=== PATIENT | female | born 1955 | race Caucasian/White ===

== ENCOUNTER 2023-11-18 16:26 | Inpatient (IN) | payer OTHER, MEDICAID ==
[~2023-11-18] VITALS: Ht 165.1 cm; Wt 125.7 kg
[2023-11-18 18:33] LABS: Basophils # (auto) 0 10 ^3/uL (0-0.2); Basophils % (auto) 0.3 % (0.0-2.0); Eosinophils # (auto) 0.1 10 ^3/uL (0-0.8); Eosinophils % (auto) 0.4 % (0.0-7.0); Hematocrit 46.9 % (36.0-46.0); Hemoglobin 15.5 g/dL (12.2-16.2); Lymphocytes % (auto) 7.2 % (10.0-50.0); Mean Corpuscular Hemoglobin 28.5 pg (28.0-32.0); Mean Corpuscular Volume 86.5 fL (80.0-100.0); Monocytes # (auto) 0.5 10 ^3/uL (0-1.3); Monocytes % (auto) 3.9 % (0.0-12.0); Neutrophils # (auto) 12.1 10 ^3/uL (1.6-8.6); Neutrophils % (auto) 88.2 % (37.0-80.0); Nucleated Red Blood Cells % 0.2 %; Platelet Count (auto) 235 10^3/uL (140-450); Red Blood Cells 5.42 10^6/uL (4.0-5.20); Red Cell Distribution Width 15.9 % (11.8-14.3); White Blood Cell 13.7 10^3/uL (4.4-10.8)
[2023-11-18 18:50] LABS: Alanine Aminotransferase 16 U/L (7-40); Albumin 4.2 g/dL (3.2-4.8); Alkaline Phosphatase 81 U/L (46-116); Anion Gap 10 (5-15); Aspartate Aminotransferase 23 U/L (13-40); BUN/Creatinine Ratio 13.6 (10.0-20.0); Blood Urea Nitrogen 17 mg/dL (9-23); Calcium 9.3 mg/dL (8.7-10.4); Carbon Dioxide 22 mmol/L (20-30); Chloride 107 mmol/L (98-107); Glucose 159 mg/dL (74-106); Sodium 139 mmol/L (136-145)
[2023-11-18 18:51] LABS: Bilirubin, Total 0.4 mg/dL (0.2-1.0); Total Protein 7.6 g/dL (5.7-8.2)
[2023-11-18 18:59] LABS: Lactic Acid w/Reflex 2.2 mmol/L (0.4-2.0)
[2023-11-18 19:01] LABS: Urine Bacteria None Seen /hpf (None Seen)
[2023-11-18 19:14] LABS: Urine Blood 1+ /uL (Negative); Urine Clarity Clear (Clear); Urine Color Yellow (Yellow); Urine Mucus FEW (None Seen); Urine Protein, UAD 1+ (Negative); Urine Specific Gravity 1.029 (1.001-1.035); Urine Urobilinogen Normal (Negative); Urine WBC 2 /hpf (0 - 5); Urine pH 5.5 (5.0-9.0)
[2023-11-18 19:18] LABS: Amphetamine Screen, Urine Neg (NEGATIVE); Barbiturate Scree,Urine Neg (NEGATIVE); Benzodiazephine Screen, Urine Neg (NEGATIVE)
[2023-11-18 19:19] LABS: Cannabinoid Screen, Urine Neg (NEGATIVE); Cocaine Screen, Urine Neg (NEGATIVE); Opiate Scree,Urine Neg (NEGATIVE); Phencyclidine Screen, Urine Neg (NEGATIVE)
[2023-11-18 19:32] LABS: Lipase 43 U/L (12-53)
[2023-11-19] VITALS (9 sets, daily range): BP systolic 117–132; BP diastolic 50–70; PULSE 60–100; RESP 14–20; TEMP 97.3–97.9; O2SAT 94–98
[2023-11-19] MEDS ORDERED: ONDANSETRON HCL 4 MG/2 ML VIAL IV PRN (00:15)
[2023-11-19] MEDS ORDERED: ACETAMINOPHEN 325 MG TAB PO PRN (00:15)
[2023-11-19] MEDS ORDERED: DEXTROSE (50%) 50ML SYRG IV PRN (00:15)
[2023-11-19] MEDS: TAMSULOSIN HYDROCHLORIDE 0.4 MG CAP PO ONE ×2 (01:19→09:45)
[2023-11-19] MEDS: cefTRIAXone 2GM/50ML D5W 50 ML IV ONE (01:19)
[2023-11-19] MEDS: ONDANSETRON HCL 4 MG/2 ML VIAL IV ONE (01:19)
[2023-11-19] MEDS: MORPHINE SULFATE INJ 2 MG/ml SYRG IV ONE (01:19)
[2023-11-19] MEDS: SODIUM CHLORIDE 0.9% 500 ML IV ONE (01:20)
[2023-11-19] MEDS: HYDROcodone-ACET 5/325MG TAB PO PRN (03:08)
[2023-11-19] MEDS: hydrALAZINE HCL 20 MG/ML VL IV PRN (03:08)
[2023-11-19] MEDS ORDERED: LISI10TA34 PO (04:36)
[2023-11-19] MEDS ORDERED: ASPI-543 PO (04:40)
[2023-11-19 05:00] LABS: Basophils # (auto) 0 10 ^3/uL (0-0.2); Basophils % (auto) 0.2 % (0.0-2.0); Eosinophils # (auto) 0 10 ^3/uL (0-0.8); Eosinophils % (auto) 0.1 % (0.0-7.0); Hematocrit 44.7 % (36.0-46.0); Hemoglobin 15.2 g/dL (12.2-16.2); Lymphocytes % (auto) 8.5 % (10.0-50.0); Mean Corpuscular Hemoglobin 28.9 pg (28.0-32.0); Mean Corpuscular Hgb Conc. 34.1 g/dL (32.0-36.0); Mean Corpuscular Volume 84.7 fL (80.0-100.0); Monocytes # (auto) 0.6 10 ^3/uL (0-1.3); Monocytes % (auto) 4.8 % (0.0-12.0); Neutrophils # (auto) 10.4 10 ^3/uL (1.6-8.6); Neutrophils % (auto) 86.4 % (37.0-80.0); Nucleated Red Blood Cells % 0.1 %; Platelet Count (auto) 228 10^3/uL (140-450); Red Blood Cells 5.28 10^6/uL (4.0-5.20); Red Cell Distribution Width 15.3 % (11.8-14.3); White Blood Cell 12.1 10^3/uL (4.4-10.8)
[2023-11-19 05:09] LABS: Anion Gap 7 (5-15); Carbon Dioxide 24 mmol/L (20-30); Chloride 107 mmol/L (98-107); Potassium 3.6 mmol/L (3.5-5.1); Sodium 138 mmol/L (136-145)
[2023-11-19 05:10] LABS: Calcium 8.8 mg/dL (8.7-10.4)
[2023-11-19 05:15] LABS: BUN/Creatinine Ratio 15.6 (10.0-20.0); Blood Urea Nitrogen 17 mg/dL (9-23); Glucose 137 mg/dL (74-106)
[2023-11-19] MEDS: InsuLIN REG 1unit/0.01ml Soln (100units/ml) SC SCH (05:40)
[2023-11-19] MEDS: ACCU-CHEK COMFORT CURVE STRIP VI SCH (05:43)
[2023-11-19] MEDS: SODIUM CHLORIDE 0.9% 1,000 ML IV SCH (09:45)
[2023-11-19] MEDS: MANNITOL FTV 25% 12.5 GM/50 ML 50 ML IV ONE ×2 (11:14→15:00)
[2023-11-19] MEDS: LISINOPRIL 5 MG TAB PO SCH (11:17)
[2023-11-19] MEDS: TAMSULOSIN HYDROCHLORIDE 0.4 MG CAP PO SCH (18:02)
[2023-11-19] MEDS ORDERED: TAMSULOSIN HYDROCHLORIDE 0.4 MG CAP PO SCH (22:00)
[2023-11-19] MEDS: cefTRIAXone 1GM/50ML D5W 50 ML IV SCH (22:05)
[2023-11-20 05:00] VITALS: BP 124/72; PULSE 79; RESP 18; TEMP 97.9; O2SAT 97
[2023-11-20 07:38] LABS: Basophils # (auto) 0 10 ^3/uL (0-0.2); Basophils % (auto) 0.3 % (0.0-2.0); Eosinophils # (auto) 0.2 10 ^3/uL (0-0.8); Eosinophils % (auto) 2.3 % (0.0-7.0); Hematocrit 42.9 % (36.0-46.0); Hemoglobin 14.6 g/dL (12.2-16.2); Lymphocytes # (auto) 1.7 10 ^3/uL (0.4-5.4); Lymphocytes % (auto) 23.9 % (10.0-50.0); Mean Corpuscular Volume 85.3 fL (80.0-100.0); Monocytes # (auto) 0.5 10 ^3/uL (0-1.3); Monocytes % (auto) 6.7 % (0.0-12.0); Neutrophils # (auto) 4.7 10 ^3/uL (1.6-8.6); Neutrophils % (auto) 66.8 % (37.0-80.0); Nucleated Red Blood Cells % 0.1 %; Platelet Count (auto) 223 10^3/uL (140-450); Red Blood Cells 5.03 10^6/uL (4.0-5.20); Red Cell Distribution Width 15.7 % (11.8-14.3); White Blood Cell 7.1 10^3/uL (4.4-10.8)
[2023-11-20 07:40] LABS: Chloride 106 mmol/L (98-107); Potassium 3.9 mmol/L (3.5-5.1); Sodium 138 mmol/L (136-145)
[2023-11-20 07:41] LABS: Anion Gap 5 (5-15); Carbon Dioxide 27 mmol/L (20-30)
[2023-11-20 07:42] LABS: Calcium 9.1 mg/dL (8.7-10.4)
[2023-11-20 07:47] LABS: BUN/Creatinine Ratio 14.1 (10.0-20.0); Blood Urea Nitrogen 12 mg/dL (9-23); Glucose 109 mg/dL (74-106)
[2023-11-20 09:00] VITALS: BP 139/59; PULSE 78; RESP 18; TEMP 98.3; O2SAT 96
[2023-11-20 11:18] VITALS: BP 139/59; PULSE 78; RESP 18; TEMP 98.3; O2SAT 96
[2023-11-20] MEDS ORDERED: TAMSULOSIN HYDROCHLORIDE 0.4 MG CAP PO SCH (18:00)
== END 2023-11-20 12:52 | disposition home or self-care (01) | DRG 693 ==
LOC: ER 16:26 → EDBD 16:26 → OVERFLOW 23:57 → CENTRAL 11-19 02:19
PROVIDERS: ADMIT Nurse Practitioner; ATTEND Internal Medicine
DX: N13.2 Hydronephrosis with renal and ureteral calculous obstruction (principal); R65.11 Systemic inflammatory response syndrome (SIRS) of non-infectious origin with acute organ dysfunction; E87.20 Acidosis, unspecified; Z68.42 Body mass index [BMI] 45.0-49.9, adult; N17.0 Acute kidney failure with tubular necrosis; E11.9 Type 2 diabetes mellitus without complications; I10 Essential (primary) hypertension; E66.01 Morbid (severe) obesity due to excess calories; E78.00 Pure hypercholesterolemia, unspecified; Z85.42 Personal history of malignant neoplasm of other parts of uterus; Z79.899 Other long term (current) drug therapy
CPT/HCPCS: 36415; 74176; 80048; 80053; 80307; 81001; 82010; 82962; 83036; 83605; 83690; 85025; G0378; J2405

== ENCOUNTER 2023-12-22 09:09 | Inpatient (IN) | payer OTHER, MEDICAID ==
[~2023-12-22] VITALS: Ht 166.4 cm; Wt 124.9 kg
[~2023-12-22 09:09] MED LIST: ASPI-543 PO; LISI10TA34 PO
[2023-12-22 09:28] VITALS: RESP 20; O2SAT 98
[2023-12-22] MEDS: SODIUM CHLORIDE 0.9% 1,000 ML IV ONE (09:31)
[2023-12-22] MEDS: ONDANSETRON HCL 4 MG/2 ML VIAL IV ONE (09:39)
[2023-12-22] MEDS: SODIUM CHLORIDE 0.9% 1,000 ML IVB ONE (09:39)
[2023-12-22] MEDS: KETOROLAC TROMETH 30 MG/ML 1ML VIAL IV ONE (09:39)
[2023-12-22 10:01] LABS: Basophils # (auto) 0.1 10 ^3/uL (0-0.2); Basophils % (auto) 0.6 % (0.0-2.0); Eosinophils # (auto) 0.1 10 ^3/uL (0-0.8); Eosinophils % (auto) 0.4 % (0.0-7.0); Hematocrit 46.2 % (36.0-46.0); Hemoglobin 15.6 g/dL (12.2-16.2); Lymphocytes # (auto) 1.3 10 ^3/uL (0.4-5.4); Lymphocytes % (auto) 8.6 % (10.0-50.0); Mean Corpuscular Hemoglobin 29.1 pg (28.0-32.0); Mean Corpuscular Hgb Conc. 33.8 g/dL (32.0-36.0); Mean Corpuscular Volume 86.2 fL (80.0-100.0); Monocytes # (auto) 1.2 10 ^3/uL (0-1.3); Monocytes % (auto) 7.7 % (0.0-12.0); Neutrophils # (auto) 12.5 10 ^3/uL (1.6-8.6); Neutrophils % (auto) 82.7 % (37.0-80.0); Nucleated Red Blood Cells % 0.1 %; Platelet Count (auto) 252 10^3/uL (140-450); Red Blood Cells 5.36 10^6/uL (4.0-5.20); Red Cell Distribution Width 15.8 % (11.8-14.3); White Blood Cell 15.1 10^3/uL (4.4-10.8)
[2023-12-22 10:45] LABS: Urine Amorphous Crystal FEW /hpf (None Seen); Urine Bacteria FEW /hpf (None Seen); Urine Blood 2+ /uL (Negative); Urine Clarity Hazy (Clear); Urine Color Yellow (Yellow); Urine Mucus FEW (None Seen); Urine Protein, UAD TRACE (Negative); Urine Specific Gravity 1.026 (1.001-1.035); Urine Urobilinogen Normal (Negative); Urine WBC 1 /hpf (0 - 5); Urine pH 5.5 (5.0-9.0)
[2023-12-22 11:02] LABS: Chloride 108 mmol/L (98-107); Potassium 3.6 mmol/L (3.5-5.1); Sodium 140 mmol/L (136-145)
[2023-12-22 11:03] LABS: Anion Gap 8 (5-15); Calcium 8.7 mg/dL (8.7-10.4); Carbon Dioxide 24 mmol/L (20-31)
[2023-12-22 11:08] LABS: BUN/Creatinine Ratio 11.3 (10.0-20.0); Blood Urea Nitrogen 13 mg/dL (9-23); Glucose 119 mg/dL (74-106)
[2023-12-22] MEDS: MORPHINE SULFATE 4 MG/ML SYR/VIAL IV ONE (14:14)
[2023-12-22] MEDS ORDERED: DOCUSATE SOD 100 MG CAP PO PRN (14:30)
[2023-12-22] MEDS ORDERED: MORPHINE SULFATE INJ 2 MG/ml SYRG IV PRN (14:30)
[2023-12-22] MEDS ORDERED: ACETAMINOPHEN 325 MG TAB PO PRN (14:30)
[2023-12-22] MEDS: LACTATED RINGER'S 1,000 ML IV ONE (15:05)
[2023-12-22] MEDS: TAMSULOSIN HYDROCHLORIDE 0.4 MG CAP PO SCH (15:05)
[2023-12-22 15:51] LABS: INR 1.04 (0.9-1.15)
[2023-12-22] MEDS: ONDANSETRON HCL 4 MG/2 ML VIAL IV PRN (17:07)
[2023-12-22 21:41] VITALS: PULSE 86; RESP 16; O2SAT 99
[2023-12-22 22:00] VITALS: BP 151/81; PULSE 93; RESP 18; TEMP 98.7; O2SAT 98
[2023-12-22] MEDS: SODIUM CHLOR 0.9% PF (SALINE LOCK) 10ML VIAL/SYR IV SCH (22:00)
[2023-12-23 01:00] VITALS: BP 128/67; PULSE 85; RESP 19; TEMP 98.5; O2SAT 95
[2023-12-23 05:00] VITALS: BP 112/56; PULSE 86; RESP 19; TEMP 97.9; O2SAT 98
[2023-12-23] MEDS: HYDROcodone-ACET 5/325MG TAB PO PRN (05:54)
[2023-12-23 08:00] VITALS: PULSE 76
[2023-12-23 08:32] LABS: Basophils # (auto) 0 10 ^3/uL (0-0.2); Basophils % (auto) 0.4 % (0.0-2.0); Eosinophils # (auto) 0.2 10 ^3/uL (0-0.8); Eosinophils % (auto) 2.6 % (0.0-7.0); Lymphocytes # (auto) 1.3 10 ^3/uL (0.4-5.4); Lymphocytes % (auto) 14.5 % (10.0-50.0); Mean Corpuscular Hemoglobin 28.9 pg (28.0-32.0); Mean Corpuscular Hgb Conc. 33.2 g/dL (32.0-36.0); Monocytes # (auto) 0.6 10 ^3/uL (0-1.3); Monocytes % (auto) 6.8 % (0.0-12.0); Neutrophils # (auto) 6.7 10 ^3/uL (1.6-8.6); Neutrophils % (auto) 75.7 % (37.0-80.0); Platelet Count (auto) 204 10^3/uL (140-450); Red Blood Cells 4.83 10^6/uL (4.0-5.20); Red Cell Distribution Width 15.9 % (11.8-14.3); White Blood Cell 8.9 10^3/uL (4.4-10.8)
[2023-12-23 08:41] LABS: Albumin 3.5 g/dL (3.2-4.8); Alkaline Phosphatase 69 U/L (46-116); Anion Gap 5 (5-15); Aspartate Aminotransferase 12 U/L (13-40); BUN/Creatinine Ratio 11.6 (10.0-20.0); Bilirubin, Total 0.6 mg/dL (0.2-1.0); Blood Urea Nitrogen 16 mg/dL (9-23); Calcium 8.8 mg/dL (8.7-10.4); Carbon Dioxide 26 mmol/L (20-31); Chloride 109 mmol/L (98-107); Glucose 117 mg/dL (74-106); Potassium 4.1 mmol/L (3.5-5.1); Sodium 140 mmol/L (136-145); Total Protein 6.5 g/dL (5.7-8.2)
[2023-12-23 08:47] LABS: Alanine Aminotransferase < 9 U/L (7-40)
[2023-12-23 09:00] VITALS: BP 125/54; PULSE 76; RESP 20; TEMP 98.1; O2SAT 97
[2023-12-23] MEDS ORDERED: ENOXAPARIN SOD 40 MG/0.4 ML SYRINGE SC SCH (10:00)
[2023-12-23 13:00] VITALS: BP 157/74; PULSE 75; RESP 20; TEMP 97.5; O2SAT 98
[2023-12-23] MEDS: LISINOPRIL 5 MG TAB PO ONE (15:14)
[2023-12-23] MEDS: MANNITOL FTV 25% 12.5 GM/50 ML 50 ML IV ONE ×2 (15:30)
[2023-12-23] MEDS ORDERED: DOCU-94 PO (16:45)
[2023-12-23] MEDS ORDERED: POLYPOW59 PO (16:45)
[2023-12-23] MEDS ORDERED: HYDR-4072 PO (16:45)
[2023-12-23] MEDS ORDERED: TAMS-35 PO (16:45)
[2023-12-23] MEDS ORDERED: ZOFR4T PO (16:45)
[2023-12-23] MEDS ORDERED: SENN8.6T26 PO (16:45)
[2023-12-24] MEDS ORDERED: LISINOPRIL 5 MG TAB PO SCH (10:00)
== END 2023-12-23 19:26 | disposition home or self-care (01) | DRG 693 ==
LOC: ER 09:09 → OVERFLOW 14:21 → WEST WING 22:00
PROVIDERS: ADMIT Internal Medicine; ATTEND Student in an Organized Health Care Education/Training Program
DX: N13.2 Hydronephrosis with renal and ureteral calculous obstruction (principal); R65.11 Systemic inflammatory response syndrome (SIRS) of non-infectious origin with acute organ dysfunction; N17.0 Acute kidney failure with tubular necrosis; E11.9 Type 2 diabetes mellitus without complications; I10 Essential (primary) hypertension; K59.00 Constipation, unspecified; K75.81 Nonalcoholic steatohepatitis (NASH); Z85.42 Personal history of malignant neoplasm of other parts of uterus; Z88.5 Allergy status to narcotic agent; Z79.82 Long term (current) use of aspirin; Z90.710 Acquired absence of both cervix and uterus; Z87.442 Personal history of urinary calculi; Z79.899 Other long term (current) drug therapy
CPT/HCPCS: 36415; 74176; 76775; 80048; 80053; 81001; 82962; 85025; 85610; 96361; 96374; 96375; 99291; G0378; J1885; J2405